=== PATIENT | male | born 1980 | race American Indian/Alaskan Native ===

== ENCOUNTER 2017-01-09 18:56 | Emergency (ER) | payer SELFPAY ==
[2017-01-09 19:38] VITALS: BP 122/79
--- NOTE | 2017-01-09 22:44 | XRay Report ---
FINAL REPORT EXAM: XR SHOULDER 2+V LT HISTORY: left shoulder pain TECHNIQUE: Three views of the left shoulder PRIORS: None. FINDINGS: There is no evidence of acute fracture. There is no evidence of joint dislocation. There is no significant focal osseous lesions seen. IMPRESSION: There is no acute abnormality identified.
[2017-01-09] MEDS: ULTRAM PO ONE (23:13)
--- NOTE | 2017-01-09 23:15 | Emergency Department Report ---
Upper Extremity - [facility] Chief Complaint: Extremity Injury, Upper Stated Complaint: PAIN Time Seen by Provider: 01/09/17 23:00 Upper Extremity: Left Shoulder (left anterior lateral shoulder pain ) Occurred When: Today Mechanism: Hyperextension Severity: moderate Symptoms: Yes Pain with Movement, No Deformity, No Limited Range of Movement, No Numbness, No Weakness, No Swelling, No Bruising/Ecchymosis, No Laceration or Abrasion ED Review of Systems ROS: Stated complaint: PAIN Other details as noted in HPI Constitutional: denies: chills, fever Eyes: denies: eye pain, eye discharge, vision change ENT: denies: ear pain, throat pain Respiratory: denies: cough, shortness of breath, wheezing Cardiovascular: denies: chest pain, palpitations Endocrine: no symptoms reported Gastrointestinal: denies: abdominal pain, nausea, diarrhea Genitourinary: denies: urgency, dysuria Musculoskeletal: myalgia (left anterior lateral shoulder ) Skin: denies: rash, lesions Neurological: denies: headache, weakness, paresthesias Psychiatric: denies: anxiety, depression Hematological/Lymphatic: denies: easy bleeding, easy bruising ED Past Medical Hx - Past Medical History Previous Medical History?: Yes Hx Asthma: Yes - Surgical History Past Surgical History?: No - Social History Smoking Status: Current Every Day Smoker Substance Use Type: Marijuana - Medications Home Medications: Home Medications Medication Instructions Recorded Confirmed Last Taken Type Cyclobenzaprine [Flexeril] 10 mg PO TID PRN #30 tablet 01/09/17 Unknown Rx Naproxen [EC-Naprosyn] 500 mg PO BID PRN #60 tablet. 01/09/17 Unknown Rx Upper Extremity Exam - Exam General: Vital signs noted. No distress. Alert and acting appropriately. Head and Torso: No HEENT Abnormality, No Neck Tenderness, No Chest/Lungs Abnormality, No Abdominal Tenderness, No Back Tenderness Shoulder Exam: Yes Shoulder Tenderness, Yes Normal Range of Motion in Shoulder, Yes AC Joint Tenderness (no ecchymosis no swelling no deformity ), No Clavicle Tenderness, No Shoulder Deformity Arm Exam: No Arm/Humerus Tenderness, No Arm Deformity Elbow: Yes Normal Range of Motion in Elbow, No Elbow Tenderness, No Elbow Deformity Forearm: No Forearm Tenderness, No Forearm Deformity, No Pain with Pronation, No Pain with Supination Wrist: Yes Normal ROM in Wrist, No Wrist Tenderness, No Wrist Deformity, No Snuffbox Tenderness, No Pain with Axial Thumb Compression Hand: Yes Normal ROM in Digit(s), No Hand Tenderness, No Hand Deformity, No Digit Tenderness, No Digit(s) Deformity, No Tendon Dysfunction CMS Exam: Yes Normal Distal Pulses, Yes Normal Capillary Refill, Yes Normal Distal Sensation, No Broken Skin ED Course Vital Signs 01/09/17 01/09/17 19:36 20:29 Temperature 97.3 F L 97.6 F Pulse Rate 61 60 Respiratory 16 16 Rate Blood Pressure 122/79 122/79 O2 Sat by Pulse 97 99 Oximetry ED Medical Decision Making - Radiology Data Radiology results: image reviewed normal shoulder xray no acute abnormalilty - Medical Decision Making 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 pt verbalized agreement and understanding of discharge plan. Critical care attestation.: If time is entered above; I have spent that time in minutes in the direct care of this critically ill patient, excluding procedure time. ED Disposition Clinical Impression: Rotator cuff (capsule) sprain Qualifiers: Encounter type: initial encounter Laterality: left Qualified Code(s): S43.422A - Sprain of left rotator cuff capsule, initial encounter Disposition: TO HOME OR SELFCARE Is pt being admited?: No Does the pt Need Aspirin: No Condition: Good Instructions: Rotator Cuff Injury (ED) Prescriptions: Cyclobenzaprine [Flexeril] 10 mg PO TID PRN #30 tablet PRN Reason: Muscle Spasm Naproxen [EC-Naprosyn] 500 mg PO BID PRN #60 tablet. PRSaroj Reason: Pain Referrals: PRIMARY CARE, [Primary Care Provider] - 3-5 Days Forms: Work/School Release Form(ED) Time of Disposition: 23:24
== END 2017-01-09 23:43 | disposition home or self-care (01) ==
LOC: ED 18:56
DX: S43.422A Sprain of left rotator cuff capsule, initial encounter (principal); J45.909 Unspecified asthma, uncomplicated; F17.200 Nicotine dependence, unspecified, uncomplicated; F12.10 Cannabis abuse, uncomplicated; X58.XXXA Exposure to other specified factors, initial encounter; Y93.9 Activity, unspecified; Y99.9 Unspecified external cause status; Y92.89 Other specified places as the place of occurrence of the external cause
CPT/HCPCS: 99283

== ENCOUNTER 2017-02-01 20:00 | Emergency (ER) | payer OTHER ==
[2017-02-01 22:11] VITALS: BP 125/73
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
== END 2017-02-02 00:55 | disposition home or self-care (01) ==
LOC: ED 20:00
DX: S39.012A Strain of muscle, fascia and tendon of lower back, initial encounter (principal); F17.210 Nicotine dependence, cigarettes, uncomplicated; X50.0XXA Overexertion from strenuous movement or load, initial encounter; Y93.89 Activity, other specified; Y92.89 Other specified places as the place of occurrence of the external cause; Y99.8 Other external cause status
CPT/HCPCS: 93005; 93010; 99282